=== PATIENT | female | born 1985 | race Caucasian/White ===

== ENCOUNTER → 2020-01-28 | Outpatient (CLI) | payer BC ==
[2020-01-28 11:44] LABS: HCG, SERUM QUANTITATIVE < 1.0 MIU/ML
[2020-01-28 11:51] LABS: ESTRADIOL 216.6 PG/ML; PROGESTERONE 30.07 NG/ML
== END ==
LOC: M PLALAB 10:28
PROVIDERS: ATTEND Obstetrics & Gynecology
DX: Z32.00 Encounter for pregnancy test, result unknown (principal)